=== PATIENT | male | born 1995 | race Caucasian/White ===

== ENCOUNTER → 2018-01-04 | Outpatient (REF) | payer BC ==
[2018-01-04 12:27] LABS: BASO % 0.7 % (0.0-1.0); EOS # 0.4 10^3/uL (0.0-0.50); EOS % 6.4 % (0.0-3.0); HEMATOCRIT 43.9 % (42.0-52.0); HEMOGLOBIN 14.9 g/dl (13.5-17.5); IMMATURE GRANULOCYTE % 0.2 % (0-3.0); LYMPH # 1.6 10^3/uL (1.5-6.5); MEAN CORPUSCULAR HEMOGLOBIN 29.9 pg (27.0-33.0); MEAN CORPUSCULAR HGB CONC 33.9 g/dl (32.0-36.5); MONO # 0.6 10^3/uL (0.0-0.8); MONO % 9.2 % (0.0-5.0); NEUTROPHILS # 3.5 10^3/uL (1.8-7.7); NEUTROPHILS % 57.5 % (36.0-66.0); PLATELET COUNT, AUTOMATED 255 10^3/uL (150-450); RED BLOOD COUNT 4.99 10^6/uL (4.30-6.10); RED CELL DISTRIBUTION WIDTH 11.8 % (11.5-14.5); WHITE BLOOD COUNT 6.1 10^3/uL (4.0-10.0)
[2018-01-04 14:13] LABS: ALBUMIN 3.8 GM/DL (3.2-5.2); ALBUMIN/GLOBULIN RATIO 1.09 (1.00-1.93); ALKALINE PHOSPHATASE 55 U/L (45-117); ALT/SGPT 247 U/L (12-78); ANION GAP 6 MEQ/L (8-16); AST/SGOT 165 U/L (7-37); BILIRUBIN,TOTAL 0.5 MG/DL (0.2-1.0); BLOOD UREA NITROGEN 11 MG/DL (7-18); CALCIUM LEVEL 8.8 MG/DL (8.5-10.1); CARBON DIOXIDE LEVEL 29 MEQ/L (21-32); CHLORIDE LEVEL 108 MEQ/L (98-107); CHOLESTEROL LEVEL 205 MG/DL (<200); CHOLESTEROL RISK RATIO 6.833 (<5); CREATININE FOR GFR 0.79 MG/DL (0.70-1.30); FREE T4 0.95 NG/DL (0.76-1.46); GLOMERULAR FILTRATION RATE > 60.0 (>60); GLUCOSE, FASTING 97 MG/DL (70-100); HDL CHOLESTEROL 30 MG/DL (>40); LDL CHOLESTEROL 125.8 MG/DL (<100); NON-HDL-C 175 MG/DL; POTASSIUM SERUM 4.6 MEQ/L (3.5-5.1); SODIUM LEVEL 143 MEQ/L (136-145); TOTAL PROTEIN 7.3 GM/DL (6.4-8.2); TRIGLYCERIDES LEVEL 246 MG/DL (<150)
== END ==
LOC: M SFHCADAM 08:16
DX: Z00.00 Encounter for general adult medical examination without abnormal findings (principal)
CPT/HCPCS: 84443

== ENCOUNTER → 2018-03-09 | Outpatient (REF) | payer BC ==
[2018-03-09 15:31] LABS: ALBUMIN/GLOBULIN RATIO 1.05 (1.00-1.93); ALKALINE PHOSPHATASE 56 U/L (45-117); ALT/SGPT 271 U/L (12-78); AST/SGOT 155 U/L (7-37); BILIRUBIN,DIRECT 0.1 MG/DL (0.0-0.2); BILIRUBIN,TOTAL 0.7 MG/DL (0.2-1.0); TOTAL PROTEIN 7.8 GM/DL (6.4-8.2)
== END ==
LOC: M SFHCADAM 07:47
DX: R94.5 Abnormal results of liver function studies (principal)
CPT/HCPCS: 80076

== ENCOUNTER → 2018-12-03 | Outpatient (CLI) | payer OTHER | LOC: M LAB 11:26 | PROVIDERS: ATTEND Physician Assistant Medical | DX: A09 Infectious gastroenteritis and colitis, unspecified (principal) ==

== ENCOUNTER 2022-05-17 19:32 | Emergency (ER) | payer BC, OTHER ==
[~2022-05-17] VITALS: Ht 180.3 cm; Wt 131.2 kg
[2022-05-18 00:13] LABS: GC DNA AMPLIFICATION NEGATIVE (NEGATIVE)
[2022-05-18] MEDS ORDERED: LevoFLOXacin 500 MG TABLET PO ONE (00:15)
[2022-05-18] MEDS ORDERED: MUPI30CR TOP (00:17)
[2022-05-18] MEDS ORDERED: LEVO1TAB39 PO (00:17)
[2022-05-18 00:26] VITALS: BP 134/70
== END 2022-05-18 00:26 | disposition home or self-care (01) ==
LOC: M ED 19:32
DX: N45.3 Epididymo-orchitis (principal); N50.89 Other specified disorders of the male genital organs; Z88.2 Allergy status to sulfonamides

== ENCOUNTER 2023-03-09 19:48 | Emergency (ER) | payer BC ==
[~2023-03-09] VITALS: Ht 180.3 cm; Wt 126.0 kg
[~2023-03-09 19:48] MED LIST: LEVO1TAB39 PO; MUPI30CR TOP
[2023-03-09] MEDS ORDERED: ONDANSETRON 4MG 2ML VIAL IV ONE (21:20)
[2023-03-09] MEDS ORDERED: NS 1,000 ML IV ONE (21:20)
[2023-03-09] MEDS ORDERED: MORPHINE 4 MG/ML 1ML VIAL IV ONE (21:20)
[2023-03-09 22:42] LABS: BASO % 0.3 % (0.0-1.0); EOS # 0.1 10^3/uL (0.0-0.5); EOS % 0.6 % (0.0-3.0); HEMOGLOBIN 14.5 g/dl (13.5-17.5); LYMPH # 0.9 10^3/uL (1.5-5.0); LYMPH % 6.2 % (24.0-44.0); MEAN CORPUSCULAR HEMOGLOBIN 29.4 pg (27.0-33.0); MEAN CORPUSCULAR HGB CONC 34.5 g/dl (32.0-36.5); MEAN CORPUSCULAR VOLUME 85.2 fl (80.0-96.0); MONO # 0.7 10^3/uL (0.0-0.8); MONO % 5.1 % (2.0-8.0); NEUTROPHILS # 12.1 10^3/uL (1.5-8.5); NEUTROPHILS % 87.4 % (36.0-66.0); PLATELET COUNT, AUTOMATED 222 10^3/uL (150-450); RED BLOOD COUNT 4.93 10^6/uL (4.30-6.10); WHITE BLOOD COUNT 13.9 10^3/uL (4.0-10.0)
[2023-03-09 23:04] LABS: LIPASE 34 U/L (12-53)
[2023-03-09 23:06] LABS: ALBUMIN 3.8 G/DL (3.2-5.2); ALKALINE PHOSPHATASE 47 U/L (46-116); ALT/SGPT 113 U/L (7.0-40); AST/SGOT 49 U/L (<34); BILIRUBIN,DIRECT 0.1 MG/DL (<0.4); BILIRUBIN,TOTAL 0.4 MG/DL (0.3-1.2); BLOOD UREA NITROGEN 16 MG/DL (9-23); CARBON DIOXIDE LEVEL 28 MMOL/L (20-31); CHLORIDE LEVEL 106 MMOL/L (98-107); CREATININE FOR GFR 0.91 MG/DL (0.70-1.30); GLOMERULAR FILTRATION RATE > 60.0 (>60); GLUCOSE, FASTING 122 MG/DL (60-100); POTASSIUM SERUM 4.5 MMOL/L (3.5-5.1); SODIUM LEVEL 141 MMOL/L (136-145)
[2023-03-09] MEDS ORDERED: FLOM0.4C39 PO (23:14)
[2023-03-09] MEDS ORDERED: NAPR-837 PO (23:14)
[2023-03-09] MEDS ORDERED: KETOROLAC 30 MG/ML 1ML VIAL IV ONE (23:15)
[2023-03-09] MEDS ORDERED: TAMSULOSIN 0.4 MG CAP PO ONE (23:15)
[2023-03-09 23:29] VITALS: BP 127/59; TEMP 97.5; O2SAT 95
== END 2023-03-09 23:34 | disposition home or self-care (01) ==
LOC: M ED 19:48
DX: N20.1 Calculus of ureter (principal); Z88.2 Allergy status to sulfonamides; Z88.8 Allergy status to other drugs, medicaments and biological substances
CPT/HCPCS: 74176; 80048; 80076; 81001; 83690; 85025; 96361; 96374; 96375; 99284; J1885; J2405

== ENCOUNTER 2025-04-09 09:08 | Emergency (ER) | payer BC ==
[~2025-04-09] VITALS: Ht 180.3 cm; Wt 142.0 kg
[~2025-04-09 09:08] MED LIST changes: +NAPR-837 PO; +TAMS-18 PO
[2025-04-09] MEDS ORDERED: ACET-683 PO (09:24)
[2025-04-09 12:37] LABS: APPEARANCE, URINE CLEAR (CLEAR); BACTERIA, URINE AUTO NEGATIVE (NEGATIVE); BILIRUBIN, URINE AUTO NEGATIVE (NEGATIVE); BLOOD, URINE BLOOD NEGATIVE (NEGATIVE); GLUCOSE, URINE (UA) AUTO NEGATIVE (NEGATIVE); KETONE, URINE AUTO NEGATIVE (NEGATIVE); LEUKOCYTE ESTERASE, URINE AUTO NEGATIVE (NEGATIVE); MUCUS, URINE SMALL (NEGATIVE); NITRITE, URINE AUTO NEGATIVE (NEGATIVE); PROTEIN, URINE AUTO NEGATIVE (NEGATIVE); RBC, URINE AUTO 0 /HPF (0-3); SPECIFIC GRAVITY URINE AUTO 1.020 (1.002-1.035); SQUAMOUS EPITHELIAL CELL UR AU 0 /HPF (0-6); UROBILINOGEN, URINE AUTO 0.2 mg/dL (0.0-2.0); WBC, URINE AUTO 1 /HPF (0-3)
[2025-04-09 12:49] LABS: BASO # 0.0 10^3/uL (0.0-0.2); BASO % 0.6 % (0.0-1.0); EOS # 0.2 10^3/uL (0.0-0.5); EOS % 4.6 % (0.0-3.0); LYMPH # 1.4 10^3/uL (1.5-5.0); LYMPH % 27.7 % (24.0-44.0); MONO # 0.3 10^3/uL (0.0-0.8); MONO % 6.4 % (2.0-8.0); NEUTROPHILS # 3.0 10^3/uL (1.5-8.5); NEUTROPHILS % 60.5 % (36.0-66.0); PLATELET COUNT, AUTOMATED 241 10^3/uL (150-450)
[2025-04-09 13:04] LABS: ERYTHROCYTE SEDIMENTATION RATE 42 mm/hr (0-15)
[2025-04-09 13:10] LABS: C REACTIVE PROTEIN QUANTITATIV 1.73 MG/DL (<1.0)
[2025-04-09 13:11] LABS: ALT/SGPT 242 U/L (7.0-40); AST/SGOT 165 U/L (<34); CALCIUM LEVEL 8.8 MG/DL (8.5-10.1); CARBON DIOXIDE LEVEL 28 MMOL/L (20-31); CHLORIDE LEVEL 102 MMOL/L (98-107); CREATININE FOR GFR 0.60 MG/DL (0.70-1.30); GLOMERULAR FILTRATION RATE > 90.0 (>60); POTASSIUM SERUM 4.2 MMOL/L (3.5-5.1); SODIUM LEVEL 140 MMOL/L (136-145)
[2025-04-09] MEDS: NS (Normal Saline) 0.9% 1,000 ML IV ONE ×2 (13:40→14:21)
[2025-04-09 14:11] LABS: CPK CREATINE PHOSPHOKINASE 2302 U/L (46-171)
[2025-04-09] MEDS ORDERED: ISOVUE-370 76% 100 ML VIAL As Ordered ONE (14:40)
[2025-04-09 16:04] VITALS: BP 149/73; TEMP 98; O2SAT 98
== END 2025-04-09 16:16 | disposition home or self-care (01) ==
LOC: M ED 09:08
DX: M62.82 Rhabdomyolysis (principal); K76.0 Fatty (change of) liver, not elsewhere classified; Z88.2 Allergy status to sulfonamides; Z79.1 Long term (current) use of non-steroidal anti-inflammatories (NSAID); Z79.899 Other long term (current) drug therapy
CPT/HCPCS: 74177; 80053; 81001; 81002; 82550; 83690; 85025; 85652; 86140; 87486; 87581; 87633; 87798; 96360; 96361; 99284; Q9967